=== PATIENT | male | born 1980 | race African-American/Black ===

== ENCOUNTER 2017-02-05 01:19 | Emergency (ER) | payer SELFPAY ==
[~2017-02-05] VITALS: Ht 175.3 cm; Wt 91.6 kg
[2017-02-05 01:30] VITALS: BP 122/68
[2017-02-05] MEDS ORDERED: AMOX500C PO (01:52)
[2017-02-05] MEDS ORDERED: NAPR-683 PO (01:52)
--- NOTE | 2017-02-05 01:52 | PHYS DOC ---
Past Medical History Past Medical History: No Pertinent History Past Surgical History: Other Additional Past Surgical Histo: left leg Smoking: Cigarettes Alcohol Use: None Drug Use: None Adult General Chief Complaint Chief Complaint: DENTAL PROBLEM HPI HPI Patient is a 37 year old male who presents with left lower tooth pain. He states this pain has been going on for 3 days. He has broken that tooth prior and has had long-standing and chronic problems with this tooth. He states the pain brought him in here tonight. Does not smoke tobacco. No difficulty swallowing no drooling. No fevers. Review of Systems Review of Systems Constitutional: Denies fever or chills HENT: Denies nasal congestion or sore throat; no difficulty swallowing All other systems were reviewed and found to be within normal limits, except as documented in this note. Allergies Allergies Allergies Coded Allergies Type Severity Reaction Last Updated Verified No Known Drug Allergies 02/05/17 No Physical Exam Physical Exam Constitutional: Well developed, well nourished, no acute distress, non-toxic appearance. HENT: Normocephalic, atraumatic, bilateral external ears normal, oropharynx moist, no oral exudates, nose normal. Left lower last molar with chronic changes ; fracture of posterior aspect of tooth; no periapical swelling. No subungual swelling, no buccal space swelling, no drooling. Neck: Normal range of motion, no tenderness, supple, no stridor. No palpable masses. Cardiovascular:Heart rate regular rhythm, no murmur Lungs & Thorax: Bilateral breath sounds clear to auscultation Current Patient Data Vital Signs Vital Signs Date Time Temp Pulse Resp B/P (MAP) Pulse Ox O2 Delivery O2 Flow Rate FiO2 02/05/17 01:30 97.9 71 18 97 Room Air 97.9 Course & Med Decision Making Course & Med Decision Making Evaluated patient. No evidence of abscess. Informed patient any see a dentist for definitive evaluation and care. Prescription written for tramadol and amoxicillin. KTRACS reviewed with no activity. I have spoken with the patient and/or caregivers. I have explained the patient' s condition, diagnosis and treatment plan based on the information available to me at this time. I have answered the patient's and/or caregiver's questions and addressed any concerns. The patient and/or caregivers have as good an understanding of the patient's diagnosis, condition and treatment plan as can be expected at this point. The patient's condition is stable and appropriate for discharge from the emergency department. The patient will pursue further outpatient evaluation with the primary care physician or other designated or consulting physician as outlined in the discharge instructions. The patient and/or caregivers are agreeable to this plan of care and follow-up instructions have been explained in detail. The patient and/or caregivers have received these instructions in written format and have expressed an understanding of the discharge instructions. The patient and/or caregivers are aware that any significant change in condition or worsening of symptoms should prompt an immediate return to this or the closest emergency department or a call to 911. Dragon Disclaimer Dragon Disclaimer This electronic medical record was generated, in whole or in part, using a voice recognition dictation system. Departure Departure Impression: Primary Impression: Pain, dental Disposition: 01 HOME, SELF-CARE Condition: STABLE Patient Instructions: Dental Caries Additional Instructions: YOU TOOTH IS BROKEN SO I AM PRESUMING THERE IS INFECTION. HOWEVER, YOU NEED TO SEE A DENTIST TO HAVE A DEFINITIVE DIAGNOSIS MADE. Scripts Naproxen (NAPROSYN) 500 Mg Tablet 1 TAB PO BID, #30 TAB 1 Refill Prov: MONIQUE MOTLEY MD 02/05/17 Amoxicillin (AMOXICILLIN) 500 Mg Capsule 1 CAP PO TID, #30 CAP Prov: MONIQUE MOTLEY MD 02/05/17 MONIQUE MOTLEY MD Feb 05, 2017 01:52
== END 2017-02-05 02:10 | disposition home or self-care (01) ==
LOC: ER 01:19
DX: K08.89 Other specified disorders of teeth and supporting structures (principal); F17.210 Nicotine dependence, cigarettes, uncomplicated
CPT/HCPCS: 99283

== ENCOUNTER 2017-03-23 17:16 | Emergency (ER) | payer SELFPAY ==
[2017-03-23] MEDS: IBUPROFEN 400 MG TABLET. PO (19:00)
[2017-03-23 19:39] LABS: INFLUENZA A PATIENT POSITIVE (NEGATIVE); INFLUENZA B PATIENT NEGATIVE (NEGATIVE); OBC FLU VALID
== END 2017-03-23 19:36 | disposition home or self-care (01) ==
LOC: ER 17:16
DX: J09.X2 Influenza due to identified novel influenza A virus with other respiratory manifestations (principal)
CPT/HCPCS: 87804; 87804-59; 99284